=== PATIENT | female | born 1950 | race Caucasian/White ===

== ENCOUNTER → 2024-03-21 | Outpatient (CLI) | payer MEDICARE, MEDICAID, SELFPAY ==
--- NOTE | 2024-03-21 10:00 | XR_ITS ---
Examination: Screening digital mammography, bilateral Computer aided detection 3-D breast Tomosynthesis, bilateral Date and time of exam: March 21, 2024 0927 hrs. No prior films available for comparison Indication: Screening Technique: Nonmagnified MLO, CC views of the breasts to been obtained, reconstructed from 3-D Tomosynthesis images. R2 computer aided detection program utilized for evaluation of suspicious masses and/or abnormal calcifications. 3-D Tomosynthesis images obtained. Findings: Scattered areas of fibroglandular density Benign calcifications No interval suspicious masses Impression: BI-RADS category II: Benign Findings. Recommend 1 year follow-up mammogram.
== END | disposition home or self-care (01) ==
PROVIDERS: PCP Family Medicine; Referring Provider Family Medicine; Visit Provider Family Medicine
DX: Z12.31 Encounter for screening mammogram for malignant neoplasm of breast (principal); R92.323 Mammographic fibroglandular density, bilateral breasts; R92.1 Mammographic calcification found on diagnostic imaging of breast
CPT/HCPCS: 77063; 77067

== ENCOUNTER → 2024-08-08 | Outpatient (CLI) | payer MEDICARE, MEDICAID, SELFPAY ==
--- NOTE | 2024-08-08 09:28 | XR_ITS ---
Examination: Right femur 2 views TECHNIQUE: AP lateral right femur 2 views Date and time: August 08, 2024 0956 hours INDICATIONS: Right leg pain beginning 8 days ago after falling FINDINGS: No right hip fracture or dislocation Suspicious for nondisplaced fractures right superior inferior pubic rami Shaft of the femur intact IMPRESSION: Recommend CT scan of the pelvis follow-up to exclude fractures right superior inferior pubic rami
== END | disposition home or self-care (01) ==
LOC: COPL 08:55 → CDIM 08-18 08:40
PROVIDERS: PCP Internal Medicine; Referring Provider Internal Medicine; Visit Provider Internal Medicine
DX: S79.921A Unspecified injury of right thigh, initial encounter (principal); W19.XXXA Unspecified fall, initial encounter
CPT/HCPCS: 73552

== ENCOUNTER → 2024-08-15 | Outpatient (CLI) | payer MEDICARE, MEDICAID, SELFPAY ==
--- NOTE | 2024-08-15 09:45 | XR_ITS ---
Examination: CT pelvis without intravenous contrast. 2-D sagittal and coronal reconstructions. Date and time of exam:August 15, 2024 0952 hours Patient fell 2 weeks ago with injury to the pelvis, pelvic pain CTDI: vol (mGy) :8 DLP: (mGycm) : 240 Technique: Multiple 3 mm axial sections of the pelvis have been obtained with the 64 slice high resolution scanner. 2-D sagittal and coronal reconstructions. Low dose protocols were performed. One or more of the following dose reduction techniques were used; automated exposure control, adjustment of the mA and/or KV according to patient size, use of iterative reconstruction technique. Findings: No pelvic hematoma Urinary bladder intact Severe osteopenia Sacral segments and iliac wings intact Subacute fractures anterior inferior right pubic ramus, axial image 134 and fracture with offset, comminuted right superior pubic ramus axial image 115 Hips are intact IMPRESSION: Subacute fractures right superior inferior pubic rami
== END | disposition home or self-care (01) ==
PROVIDERS: PCP Internal Medicine; Referring Provider Internal Medicine; Visit Provider Internal Medicine
DX: S32.511A Fracture of superior rim of right pubis, initial encounter for closed fracture (principal); W19.XXXA Unspecified fall, initial encounter
CPT/HCPCS: 72192

== ENCOUNTER 2024-08-22 08:19 | Outpatient (AMB) | payer MEDICARE, MEDICAID, SELFPAY ==
--- NOTE | 2024-08-22 08:29 | ORTHONT_ITS ---
Vital signs 08/22/24 08:39 Height 1.57 m Height Method Measured Weight 66.82 kg Weight Measurement Method Standing Scale BMI 26.9 BP 98/62 Blood Pressure Source Automatic Cuff Blood Pressure Location Right Upper Arm Position Sitting Respiration 18 Pulse Source Monitor Temp 97.2 F Temp Source Temporal Artery Scan Pulse Oximetry (%) 96 Oxygen Delivery Method Room Air Med/Allergies Allergies & Medications Allergies NKA* Allergy (Uncoded 08/22/24 08:40) Medication Reconciliation Acetaminophen * (TYLENOL *) 1 tab PO TID PRN PAIN #0 tabs 01/04/16 [History Confirmed 08/22/24] Benztropine Mesylate * (COGENTIN *) 2 mg PO BID #0 tabs 01/04/16 [History Confirmed 08/22/24] Ezetimibe/Simvastatin (Vytorin 10-20 Mg Tablet) PO HS ##0 01/04/16 [History Confirmed 08/22/24] Magnesium Oxide (Magnesium) 400 mg PO #0 tabs 01/04/16 [History Confirmed 08/22/24] carisoprodol 350 mg tablet 350 mg PO HS PRN MUSCLE SPASMS #0 tabs 01/04/16 [History Confirmed 08/22/24] cholecalciferol (vitamin D3) 25 mcg (1,000 unit) capsule (Vitamin D3) 1,000 unit PO QDAY #0 tabs 01/04/16 [History Confirmed 08/22/24] docusate sodium 50 mg capsule (Colace Clear) PO BID #0 caps 01/04/16 [History Confirmed 08/22/24] montelukast 10 mg tablet (Singulair) 10 mg PO HS #0 tabs 01/04/16 [History Confirmed 08/22/24] pantoprazole 40 mg tablet,delayed release (Protonix) 40 mg PO QDAY ##0 01/04/16 [History Confirmed 08/22/24] pramipexole 0.5 mg tablet (Mirapex) 0.5 mg PO QDAY #0 tabs 01/04/16 [History Confirmed 08/22/24] risperidone 4 mg tablet (Risperdal) 4 mg PO QDAY #0 tabs 01/04/16 [History Confirmed 08/22/24] tramadol 50 mg tablet (Ultram) 50 mg PO Q8HR PRN PAIN #2 tabs 01/04/16 [History Confirmed 08/22/24] Exam Exam Patient is in no acute distress and is cooperative with the examination today. Breathing is nonlabored. In no respiratory distress. Patient has no paraspinal tenderness. Spinal deformity cannot be appreciated. The gait of the patient is nonantalgic Bilateral extremities were evaluated and demonstrates sensation intact to light touch. Palpable pedal pulses are present. No significant edema is present. Bilateral knees were examined and the patient has full strength and range of motion.. The left hip was examined. Patient was able to flex to 90 degrees, adduct to 30 degrees, abduct to 40 degrees, internally rotate to 20 degrees, and externally rotate to 20 degrees. Patient has a negative logroll. Stinchfield is negative. The patient is nontender diffusely to touch. The right hip was examined. Patient was able to flex to 90 degrees, adduct to 30 degrees, abduct to 40 degrees, internally rotate to 20 degrees, and externally rotate to 20 degrees. Patient has a negative logroll. The stinchfield is negative. She is tender to palpation over the greater trochanter Patient is a CT which demonstrates superior pubic ramus fractures on the right. She has no hip or pelvis x-rays Assessment and Plan Problem List (1) Acute pain of right hip: Status: Acute Plan: Patient is a pleasant 73-year-old female with a right pubic ramus fracture after a fall. We recommend conservative treatment of this time. Will order x-rays as she has no hip or pelvis x-rays. We will see her back to discuss different treatment options Advanced Care Planning Discussion Advance care planning discussed with:: patient Office Procedures GNS Level of Care Nursing/Assessment Patient Status: Initial/New Patient Nursing Assessment/Reassesment: Medication Reconciliation, Update PMH in EMR and Vital Signs Coordination of Care: Complex Care and Chronic Disease 1-5, Education Complex Pt/Fam, Consent,records obtained, informed consent, Lab and Imaging orders, Results/Orders obtained and Staff clarify orders New Patient Charge New Patient Point Assignment: [id number] New Patient Point Charge: IT ADMINISTRATOR Level 3 ([id number]) MA Intake Visit Data Collection New Patient or Established: New Patient (never been to [facility]) Reason for Visit:: FX OF SUPERIOR RIM RIGHT PUBIS Seen by Clinical Staff ONLY (RN/MA): No Medical Oncology Physician Required: No PCP or OBGYN visit in last 3 months: Yes Hx Now: No Do You Feel Safe at Home: Yes Authorities Contacted: N/A Questionairres Past Medical History Past Medical History Have you ever been diagnosed with any of the following: Neurological Problems Cerebrovascular Accident (CVA): No Transient Ischemic Attacks (TIA): No Dementia: No Alzheimer's Disease: No Parkinson's Disease: No Brain Tumor: No Meningitis: No Seizures: No Epilepsy: No Multiple Sclerosis: No Cerebral Palsy: No Amyotrophic Lateral Sclerosis (ALS/Lotus Gehrig's): No Guillain-[place] Syndrome: No Spina Bifida: No Paralysis: No Peripheral Neuropathy: No Good's Palsy: No Subdural Hematoma: No Migraine: No Head Trauma: No Spinal Cord Injury: No Traumatic Brain Injury: No Cardiology Problems Myocardial Infarction: No Cardiac Arrhythmia: No Atrial Fibrillation: No Angina: No Heart Murmur: No Coronary Artery Disease: No Atherosclerotic Heart Disease: No Peripheral Vascular Disease: No Hypercholesterolemia: No Aneurysm: No Congestive Heart Failure: No Congenital Heart Disease: No Valvular Heart Disease: No Rheumatic Fever: No Cardiomyopathy: No Edema: No Pericarditis: No Cellulitis: No Deep Vein Thrombosis: No Hypertension: No Hypotension: No Varicose Veins: No Respiratory Problems Chronic Obstructive Pulmonary Disease (COPD): No Asthma: No Bronchitis: No Emphysema: No Pneumonia: No Pulmonary Fibrosis: No Tuberculosis: No Pulmonary Embolism: No Pulmonary Edema: No Sleep Apnea: No CPAP Dependent: No Respiratory Aspiration: No Dyspnea: No Orthopnea: No Hx Cough: No Cough: No Wheezing: No Chest Deformities: No Smoking: No Smoking Cessation Counseling: No Smoking Exposure: No Tobacco Use: No Clubbing: No Exposure to Respiratory Irritants: No Intubation: No Stomache/Intestinal Problems Liver Cancer: No Hepatitis: No Cirrhosis: No Pancreatic Cancer: No Pancreatitis: No Celiac Disease: No Gall Bladder Disease: No Gastrointestinal Bleed: No Esophageal Varices: No Jackson's Esophagus: No Colitis: No Ulcerative Colitis: No Diverticulitis: No Diverticulosis: No Ulcer: No Colorectal Cancer: No Irritable Bowel: No Crohn's Disease: No Obstructive Bowel: No Hiatal Hernia: No Hemorrhoids: No Gastroesophageal Reflux Disease: No Polyps: No Obesity: No Genital/Urinary Problems Chronic Kidney Disease: No Renal Disease: No Kidney Stones: No Polycystic Kidney Disease: No Neurogenic Bladder: No Inguinal Hernia: No Dialysis: No Reproductive Problems Breast Cancer: No Endometriosis: No Fibroids: No Genital Herpes: No Gonorrhea: No Pelvic Inflammatory Disease: No Polycystic Ovarian Syndrome: No Previous Pregnancies: No Syphilis: No Uterine Prolapse: No Musculoskeletal Problems Muscular Dystrophy: No Myasthenia Gravis: No Marfan's Syndrome: No Bone Cancer: No Arthritis: No Rheumatoid Arthritis: No Osteoporosis: No Degenerative Disk Disease: No Gout: No Scoliosis: No Carpal Tunnel Syndrome: No Fibromyalgia: No Fractures: No Degenerative Joint Disease: No Osteomyelitis: No Poliovirus: No Head,Eye,Nose,Throat Problems Cataracts: No Glaucoma: No Blind: No Retinal Detachment: No Macular Degeneration: No Chronic Ear Infections: No Deafness: No Eye Prosthesis: No Endocrine Problems Diabetes Mellitus Type 1: No Diabetes Mellitus Type 2: No Hypoglycemia: No Elkins's Syndrome: No Phoenix's Disease: No Hyperthyroidism: No Hypothyroidism: No Thyroid Cancer: No Parathyroid Disease: No Pituitary Disease: No Systemic Lupus Erythematosus: No Syndrome of Inappropriate Antidiuretic Hormone: No Adrenal Disease: No Graves' Disease: No Blood Problems Anemia: No Leukemia: No Hemophilia: No Thalassemia: No Sickle Cell Disease: No Clotting Problems: No Psychologic Problems Schizophrenia: No Recreational Drug Use: No Bipolar Disorder: No Depression: No Anxiety: No Behavior Problems: No Self-Mutilation: No Attention Deficit Disorder: No Attention Deficit Hyperactivity Disorder: No Depression: No Post Traumatic Stress Disorder: No Eating Disorder: No Other Problems Hospitalization: No Autoimmune Disease: No Down Syndrome: No Autism: No Developmental Delay: No Cosmetic Surgery: No Shingles: No Falls: No Blood Transfusions: No Blood Transfusion Reaction: No Anesthesia Reactions: No Organ Transplant: No Chemotherapy: No Radiation Therapy: No Hyperbaric Therapy: No MRSA: No VRSA: No Vancomycin-Resistant Enterococci: No Human Immunodeficiency Virus (HIV): No Chicken Pox: No Measles: No Mumps: No Rubella ([place] Measles): No Pertussis: No Klebsiella Pneumoniae Carbapenemase Producing Bacteria: No Clostridium Difficile: No Hepatitis A: No Hepatitis B: No Hepatitis C: No Communicable Disease: No Cancer: No Cervical Cancer: No Lung Cancer: No Ovarian Cancer: No Surgical History Angioplasty: No Appendectomy: No Bariatric Surgery: No Breast Surgery: No Cancer Surgery: No Carotid Endarterectomy: No Cholecystectomy: No Colectomy: No Colostomy: No Coronary Artery Bypass Graft: No Valve Replacement: No Herniorrhaphy: No Total Hip Replacement: No Total Knee Replacement: No Hysterectomy: No Pacemaker: No Sinus Surgery: No Splenectomy: No TAHBSO-Total Abdominal Hysterectomy: No Thyroidectomy: No Ureter Stent: No Subjective Visit Visit for: new patient and hip Immunization / Flu Flu Vaccine in the Last 12 Months: No Flu Vaccine Exclusion Criteria: No Exclusion Criteria History of Present Illness Chief complaint: FX OF SUPERIOR RIM RIGHT PUBIS Patient is 73-year-old female with a fall approximately a month ago into her house when she fell to put on pants. She reports significant right hip pain since then. She was diagnosed with a right superior pubic ramus fracture. She reports that she is still walking over a mile a day. There is some discomfort Personal History Occupation: RETIRED Red flag PMH: smoker BMI Counceling provided: No Pain Pain level (0-10): 8 Pain location: groin Pain quality: sharp Pain timing: increases with activity Associated signs & symptoms: none Ambulatory data Ambulatory device: walker Treatments Improvement with previous injections: No Improvement with PT: No Improvement with NSAIDS: no Review of Systems Review of Systems: All systems negative unless otherwise noted in HPI.
[2024-08-22 08:39] VITALS: BP 98/62; RESP 18; TEMP 36.2; O2SAT 96; BMI 26.9
--- NOTE | 2024-08-22 08:39 | XR_ITS ---
Examination:Right hip AP, lateral, AP pelvis 3 views Technique: Hip AP lateral, AP pelvis, 3 views Exam date and time:August 22, 2024 0857 hours INDICATIONS: Patient fell one month ago with injury to the right hip, right hip pain. FINDINGS: No right hip fracture or dislocation Fractures right superior inferior pubic rami subacute to old IMPRESSION: Fractures right superior inferior pubic rami with satisfactory alignment, subacute to old.
== END 2024-08-22 08:51 | disposition home or self-care (01) ==
LOC: HODSRG 08:19
PROVIDERS: PCP Internal Medicine; Referring Provider Internal Medicine; Supervising Provider Orthopaedic Surgery Adult Reconstructive Orthopaedic Surgery; Visit Provider Orthopaedic Surgery Adult Reconstructive Orthopaedic Surgery
DX: M25.551 Pain in right hip (principal); S32.591A Other specified fracture of right pubis, initial encounter for closed fracture; W19.XXXA Unspecified fall, initial encounter
CPT/HCPCS: 73502; 99203; G0463

== ENCOUNTER 2024-08-29 13:31 | Outpatient (AMB) | payer MEDICARE, MEDICAID, SELFPAY ==
--- NOTE | 2024-08-29 13:59 | ORTHONT_ITS ---
Vital signs 08/29/24 14:11 Height 1.57 m Height Method Measured Weight 65.998 kg Weight Measurement Method Standing Scale BMI 26.7 BP 128/74 Blood Pressure Source Automatic Cuff Blood Pressure Location Left Upper Arm Position Sitting Respiration 18 Pulse 76 Pulse Source Monitor Temp 98.1 F Temp Source Temporal Artery Scan Pulse Oximetry (%) 96 Oxygen Delivery Method Room Air Med/Allergies Allergies & Medications Allergies NKA* Allergy (Uncoded 08/29/24 14:11) Medication Reconciliation Acetaminophen * (TYLENOL *) 1 tab PO TID PRN PAIN #0 tabs 01/04/16 [History Confirmed 08/29/24] Benztropine Mesylate * (COGENTIN *) 2 mg PO BID #0 tabs 01/04/16 [History Confirmed 08/29/24] Ezetimibe/Simvastatin (Vytorin 10-20 Mg Tablet) PO HS ##0 01/04/16 [History Confirmed 08/29/24] Magnesium Oxide (Magnesium) 400 mg PO #0 tabs 01/04/16 [History Confirmed 08/29/24] carisoprodol 350 mg tablet 350 mg PO HS PRN MUSCLE SPASMS #0 tabs 01/04/16 [History Confirmed 08/29/24] cholecalciferol (vitamin D3) 25 mcg (1,000 unit) capsule (Vitamin D3) 1,000 unit PO QDAY #0 tabs 01/04/16 [History Confirmed 08/29/24] docusate sodium 50 mg capsule (Colace Clear) PO BID #0 caps 01/04/16 [History Confirmed 08/29/24] montelukast 10 mg tablet (Singulair) 10 mg PO HS #0 tabs 01/04/16 [History Confirmed 08/29/24] pantoprazole 40 mg tablet,delayed release (Protonix) 40 mg PO QDAY ##0 01/04/16 [History Confirmed 08/29/24] pramipexole 0.5 mg tablet (Mirapex) 0.5 mg PO QDAY #0 tabs 01/04/16 [History Confirmed 08/29/24] risperidone 4 mg tablet (Risperdal) 4 mg PO QDAY #0 tabs 01/04/16 [History Confirmed 08/29/24] tramadol 50 mg tablet (Ultram) 50 mg PO Q8HR PRN PAIN #2 tabs 01/04/16 [History Confirmed 08/29/24] Exam Exam Patient is in no acute distress and is cooperative with the examination today. Breathing is nonlabored. In no respiratory distress. Patient has no paraspinal tenderness. Spinal deformity cannot be appreciated. The gait of the patient is nonantalgic Bilateral extremities were evaluated and demonstrates sensation intact to light touch. Palpable pedal pulses are present. No significant edema is present. Bilateral knees were examined and the patient has full strength and range of motion.. The left hip was examined. Patient was able to flex to 90 degrees, adduct to 30 degrees, abduct to 40 degrees, internally rotate to 20 degrees, and externally rotate to 20 degrees. Patient has a negative logroll. Stinchfield is negative. The patient is nontender diffusely to touch. The right hip was examined. Patient was able to flex to 90 degrees, adduct to 30 degrees, abduct to 40 degrees, internally rotate to 20 degrees, and externally rotate to 20 degrees. Patient has a negative logroll. The stinchfield is negative. She is tender to palpation over the greater trochanter Patient is a CT which demonstrates superior pubic ramus fractures on the right. She has no hip or pelvis x-rays X-rays demonstrate healed superior pubic rami fracture. She has minimal arthritis Assessment and Plan Problem List (1) Acute pain of right hip: Status: Acute Plan: Patient is a pleasant 73-year-old female with a right pubic ramus fracture after a fall. The right pubic ramus fracture is healed. She does have trochanteric bursitis. We thus recommended a trochanteric bursitis injection as well as anti-inflammatories. Recommend hip bursa cortisone injection as patient would like to proceed with conservative treatment at this time. The risks and benefits of the procedure were reviewed with the patient and patient gave verbal consent to continue with the procedure. Procedure: performed by Dr. Reyna Using sterile technique the right hip bursa was thoroughly prepped with alcohol prep, and approximately 1 cc of Depo-Medrol 80 mg/mL and 4 cc of 0.2% ropivacaine was injected without resistance. The patient tolerated the procedure well. Advanced Care Planning Discussion Advance care planning discussed with:: patient Office Procedures Medication Given Medication Given Medication Given: Yes Documented Dose Given: 1 Route: Infiitration Medication Given Medication Given Medication Given: Yes Documented Dose Given: 4 Route: Infiitration Office Meds methylprednisolone acetate 80 mg/mL suspension for injection Performing Provider: Ilia Reyna MD Performing Location: [facility] Administered by: Ilia Reyna MD on 08/29/24 14:07 Dose Route Admin Location Dispensed Lot Number Expiration Date [facility] [place] 2[place] [employer] 80 mg intra-articular HIP 1 mL [id number] 01/05/26 [address]-9 A [facility] ropivacaine (PF) 2 mg/mL (0.2 %) injection solution Performing Provider: Ilia Reyna MD Performing Location: [facility] Administered by: Ilia Reyna MD on 08/29/24 14:07 Dose Route Admin Location Dispensed Lot Number Expiration Date [facility] [place]NOTE 2[place] [employer] 20 mL Infiltration HIP 20 mL [id number] 01/05/26 06775-853-22 DELROY URBINA MA Intake Visit Data Collection New Patient or Established: Established Patient (seen at [facility] within 3 years) Reason for Visit:: F/U XRAY RESULTS HIP FX Seen by Clinical Staff ONLY (RN/MA): No Meatman Required: No PCP or OBGYN visit in last 3 months: Yes Hx Now: No Do You Feel Safe at Home: Yes Authorities Contacted: N/A Questionairres Past Medical History Past Medical History Have you ever been diagnosed with any of the following: Neurological Problems Cerebrovascular Accident (CVA): No Transient Ischemic Attacks (TIA): No Dementia: No Alzheimer's Disease: No Parkinson's Disease: No Brain Tumor: No Meningitis: No Seizures: No Epilepsy: No Multiple Sclerosis: No Cerebral Palsy: No Amyotrophic Lateral Sclerosis (ALS/Lotus Gehrig's): No Guillain-[place] Syndrome: No Spina Bifida: No Paralysis: No Peripheral Neuropathy: No Good's Palsy: No Subdural Hematoma: No Migraine: No Head Trauma: No Spinal Cord Injury: No Traumatic Brain Injury: No Cardiology Problems Myocardial Infarction: No Cardiac Arrhythmia: No Atrial Fibrillation: No Angina: No Heart Murmur: No Coronary Artery Disease: No Atherosclerotic Heart Disease: No Peripheral Vascular Disease: No Hypercholesterolemia: No Aneurysm: No Congestive Heart Failure: No Congenital Heart Disease: No Valvular Heart Disease: No Rheumatic Fever: No Cardiomyopathy: No Edema: No Pericarditis: No Cellulitis: No Deep Vein Thrombosis: No Hypertension: No Hypotension: No Varicose Veins: No Respiratory Problems Chronic Obstructive Pulmonary Disease (COPD): No Asthma: No Bronchitis: No Emphysema: No Pneumonia: No Pulmonary Fibrosis: No Tuberculosis: No Pulmonary Embolism: No Pulmonary Edema: No Sleep Apnea: No CPAP Dependent: No Respiratory Aspiration: No Dyspnea: No Orthopnea: No Hx Cough: No Cough: No Wheezing: No Chest Deformities: No Smoking: No Smoking Cessation Counseling: No Smoking Exposure: No Tobacco Use: No Clubbing: No Exposure to Respiratory Irritants: No Intubation: No Stomache/Intestinal Problems Liver Cancer: No Hepatitis: No Cirrhosis: No Pancreatic Cancer: No Pancreatitis: No Celiac Disease: No Gall Bladder Disease: No Gastrointestinal Bleed: No Esophageal Varices: No Jackson's Esophagus: No Colitis: No Ulcerative Colitis: No Diverticulitis: No Diverticulosis: No Ulcer: No Colorectal Cancer: No Irritable Bowel: No Crohn's Disease: No Obstructive Bowel: No Hiatal Hernia: No Hemorrhoids: No Gastroesophageal Reflux Disease: No Obesity: No Genital/Urinary Problems Renal Disease: No Kidney Stones: No Polycystic Kidney Disease: No Neurogenic Bladder: No Inguinal Hernia: No Dialysis: No Reproductive Problems Breast Cancer: No Endometriosis: No Fibroids: No Genital Herpes: No Gonorrhea: No Pelvic Inflammatory Disease: No Polycystic Ovarian Syndrome: No Previous Pregnancies: No Syphilis: No Uterine Prolapse: No Musculoskeletal Problems Muscular Dystrophy: No Myasthenia Gravis: No Marfan's Syndrome: No Bone Cancer: No Arthritis: No Rheumatoid Arthritis: No Osteoporosis: No Degenerative Disk Disease: No Gout: No Scoliosis: No Carpal Tunnel Syndrome: No Fibromyalgia: No Fractures: No Degenerative Joint Disease: No Osteomyelitis: No Poliovirus: No Head,Eye,Nose,Throat Problems Cataracts: No Glaucoma: No Blind: No Retinal Detachment: No Macular Degeneration: No Chronic Ear Infections: No Deafness: No Eye Prosthesis: No Endocrine Problems Diabetes Mellitus Type 1: No Diabetes Mellitus Type 2: No Hypoglycemia: No [place]'s Syndrome: No Markell's Disease: No Hyperthyroidism: No Hypothyroidism: No Thyroid Cancer: No Parathyroid Disease: No Pituitary Disease: No Systemic Lupus Erythematosus: No Syndrome of Inappropriate Antidiuretic Hormone: No Adrenal Disease: No Graves' Disease: No Blood Problems Anemia: No Leukemia: No Hemophilia: No Thalassemia: No Sickle Cell Disease: No Clotting Problems: No Psychologic Problems Schizophrenia: No Recreational Drug Use: No Bipolar Disorder: No Depression: No Anxiety: No Behavior Problems: No Self-Mutilation: No Attention Deficit Disorder: No Attention Deficit Hyperactivity Disorder: No Depression: No Post Traumatic Stress Disorder: No Eating Disorder: No Other Problems Hospitalization: No Down Syndrome: No Autism: No Developmental Delay: No Cosmetic Surgery: No Shingles: No Falls: No Blood Transfusions: No Blood Transfusion Reaction: No Anesthesia Reactions: No Organ Transplant: No Chemotherapy: No Radiation Therapy: No Hyperbaric Therapy: No MRSA: No VRSA: No Vancomycin-Resistant Enterococci: No Human Immunodeficiency Virus (HIV): No Chicken Pox: No Measles: No Mumps: No Rubella (Macedonian Measles): No Pertussis: No Klebsiella Pneumoniae Carbapenemase Producing Bacteria: No Clostridium Difficile: No Hepatitis A: No Hepatitis B: No Hepatitis C: No Communicable Disease: No Cancer: No Cervical Cancer: No Lung Cancer: No Ovarian Cancer: No Surgical History Angioplasty: No Appendectomy: No Bariatric Surgery: No Breast Surgery: No Cancer Surgery: No Carotid Endarterectomy: No Cholecystectomy: No Colectomy: No Colostomy: No Coronary Artery Bypass Graft: No Valve Replacement: No Herniorrhaphy: No Total Hip Replacement: No Total Knee Replacement: No Hysterectomy: No Pacemaker: No Sinus Surgery: No Splenectomy: No TAHBSO-Total Abdominal Hysterectomy: No Thyroidectomy: No Ureter Stent: No Subjective Visit Visit for: new patient and hip Immunization / Flu Flu Vaccine in the Last 12 Months: No Flu Vaccine Exclusion Criteria: No Exclusion Criteria History of Present Illness Chief complaint: FX OF SUPERIOR RIM RIGHT PUBIS Patient is 73-year-old female with a fall approximately a month ago into her house when she fell to put on pants. She reports significant right hip pain since then. She was diagnosed with a right superior pubic ramus fracture. She reports that she is still walking over a mile a day. There is some discomfort on the lateral aspect of her hip. Personal History Occupation: RETIRED Red flag PMH: smoker BMI Counceling provided: No Pain Pain level (0-10): 8 Pain location: groin Pain quality: sharp Pain timing: increases with activity Associated signs & symptoms: none Ambulatory data Ambulatory device: walker Treatments Improvement with previous injections: No Improvement with PT: No Improvement with NSAIDS: no Review of Systems Review of Systems: All systems negative unless otherwise noted in HPI.
[2024-08-29 14:11] VITALS: BP 128/74; PULSE 76; RESP 18; TEMP 36.7; O2SAT 96; BMI 26.7
== END 2024-08-29 14:12 | disposition home or self-care (01) ==
LOC: HODSRG 13:31
PROVIDERS: PCP Internal Medicine; Referring Provider Internal Medicine; Supervising Provider Orthopaedic Surgery Adult Reconstructive Orthopaedic Surgery; Visit Provider Orthopaedic Surgery Adult Reconstructive Orthopaedic Surgery
DX: M25.551 Pain in right hip (principal); S32.591D Other specified fracture of right pubis, subsequent encounter for fracture with routine healing; W19.XXXD Unspecified fall, subsequent encounter; Y92.009 Unspecified place in unspecified non-institutional (private) residence as the place of occurrence of the external cause; M70.60 Trochanteric bursitis, unspecified hip
CPT/HCPCS: 20610; 99204; J1010; J2795; G0463

== ENCOUNTER 2024-11-28 12:56 | Outpatient (AMB) | payer MEDICARE, MEDICAID, SELFPAY ==
--- NOTE | 2024-11-28 13:14 | ORTHONT_ITS ---
Vital signs 11/28/24 13:15 Height 1.57 m Height Method Stated Weight 68.237 kg Weight Measurement Method Standing Scale BMI 27.6 BP 121/84 Blood Pressure Source Automatic Cuff Blood Pressure Location Left Upper Arm Position Sitting Respiration 18 Pulse 78 Pulse Source Monitor Temp 98.2 F Temp Source Temporal Artery Scan Pulse Oximetry (%) 97 Oxygen Delivery Method Room Air Med/Allergies Allergies & Medications Allergies NKA* Allergy (Uncoded 11/28/24 13:16) Medication Reconciliation Acetaminophen * (TYLENOL *) 1 tab PO TID PRN PAIN #0 tabs 01/04/16 [History Confirmed 11/28/24] Benztropine Mesylate * (COGENTIN *) 2 mg PO BID #0 tabs 01/04/16 [History Confirmed 11/28/24] Ezetimibe/Simvastatin (Vytorin 10-20 Mg Tablet) PO HS ##0 01/04/16 [History Confirmed 11/28/24] Magnesium Oxide (Magnesium) 400 mg PO #0 tabs 01/04/16 [History Confirmed 11/28/24] carisoprodol 350 mg tablet 350 mg PO HS PRN MUSCLE SPASMS #0 tabs 01/04/16 [History Confirmed 11/28/24] cholecalciferol (vitamin D3) 25 mcg (1,000 unit) capsule (Vitamin D3) 1,000 unit PO QDAY #0 tabs 01/04/16 [History Confirmed 11/28/24] docusate sodium 50 mg capsule (Colace Clear) PO BID #0 caps 01/04/16 [History Confirmed 11/28/24] montelukast 10 mg tablet (Singulair) 10 mg PO HS #0 tabs 01/04/16 [History Confirmed 11/28/24] pantoprazole 40 mg tablet,delayed release (Protonix) 40 mg PO QDAY ##0 01/04/16 [History Confirmed 11/28/24] pramipexole 0.5 mg tablet (Mirapex) 0.5 mg PO QDAY #0 tabs 01/04/16 [History Confirmed 11/28/24] risperidone 4 mg tablet (Risperdal) 4 mg PO QDAY #0 tabs 01/04/16 [History Confirmed 11/28/24] tramadol 50 mg tablet (Ultram) 50 mg PO Q8HR PRN PAIN #2 tabs 01/04/16 [History Confirmed 11/28/24] naproxen 500 mg tablet 500 mg PO BID #30 tabs 11/28/24 [Rx] Exam Exam Patient is in no acute distress and is cooperative with the examination today. Breathing is nonlabored. In no respiratory distress. Patient has no paraspinal tenderness. Spinal deformity cannot be appreciated. The gait of the patient is nonantalgic Bilateral extremities were evaluated and demonstrates sensation intact to light touch. Palpable pedal pulses are present. No significant edema is present. Bilateral knees were examined and the patient has full strength and range of motion.. The left hip was examined. Patient was able to flex to 90 degrees, adduct to 30 degrees, abduct to 40 degrees, internally rotate to 20 degrees, and externally rotate to 20 degrees. Patient has a negative logroll. Stinchfield is negative. The patient is nontender diffusely to touch. The right hip was examined. Patient was able to flex to 90 degrees, adduct to 30 degrees, abduct to 40 degrees, internally rotate to 20 degrees, and externally rotate to 20 degrees. Patient has a negative logroll. The stinchfield is negative. She is tender to palpation over the greater trochanter Patient is a CT which demonstrates superior pubic ramus fractures on the right. She has no hip or pelvis x-rays X-rays demonstrate healed superior pubic rami fracture. She has minimal arthritis Assessment and Plan Problem List (1) Acute pain of right hip: Status: Acute Plan: Patient is a pleasant 73-year-old female with a right pubic ramus fracture after a fall. The right pubic ramus fracture is healed. She does have trochanteric bursitis of her bilateral hips. She would like to get bilateral hip bursa injections today as well as anti-inflammatories. Recommend hip bursa cortisone injection as patient would like to proceed with conservative treatment at this time. The risks and benefits of the procedure were reviewed with the patient and patient gave verbal consent to continue with the procedure. Procedure: performed by Dr. Reyna Using sterile technique the right hip bursa was thoroughly prepped with alcohol prep, and approximately 1 cc of Depo-Medrol 80 mg/mL and 4 cc of 0.2% ropivacaine was injected without resistance. The patient tolerated the procedure well. Recommend hip bursa cortisone injection as patient would like to proceed with conservative treatment at this time. The risks and benefits of the procedure were reviewed with the patient and patient gave verbal consent to continue with the procedure. Procedure: performed by Dr. Reyna Using sterile technique the left hip bursa was thoroughly prepped with alcohol prep, and approximately 1 cc of Depo-Medrol 80 mg/mL and 4 cc of 0.2% ropiv acaine was injected without resistance. The patient tolerated the procedure well. (2) Trochanteric bursitis of both hips: Status: Acute Advanced Care Planning Discussion Advance care planning discussed with:: patient Office Procedures GNS Level of Care Nursing/Assessment Patient Status: Established Patient Nursing Assessment/Reassesment: Medication Reconciliation, Update PMH in EMR and Vital Signs Coordination of Care: Complex Care and Chronic Disease 1-5, Education Complex Pt/Fam, Consent,records obtained, informed consent, Results/Orders obtained and Staff clarify orders Established Patient Charge Established Patient Point Assignment: 95 Established Patient Point Charge: EP Level 3 (80-115) Medication Given Medication Given Medication Given: Yes Documented Dose Given: 2 Route: Infiitration Medication Given Medication Given Medication Given: Yes Documented Dose Given: 8 Route: Infiitration Office Meds methylprednisolone acetate 80 mg/mL suspension for injection Performing Provider: Ilia Reyna MD Performing Location: [facility] Administered by: Ilia Reyna MD on 11/28/24 13:39 Dose Route Admin Location Dispensed Lot Number Expiration Date Pack age [employer] 160 mg intra-articular KNEE 2 mL [id number] 08/05/26 [address]-2 [id number] [employer] ropivacaine (PF) 2 mg/mL (0.2 %) injection solution Performing Provider: Ilia Reyna MD Performing Location: [facility] Administered by: Ilia Reyna MD on 11/28/24 13:39 Dose Route Admin Location Dispensed Lot Number Expiration Date Pack age [facility] [employer] 40 mL Infiltration KNEE 40 mL [id number] 03/07/27 70375-704-73 [id number] [facility] Intake Visit Data Collection New Patient or Established: Established Patient (seen at [facility] within 3 years) Reason for Visit:: 3MTH FOLLOW UP Seen by Clinical Staff ONLY (RN/MA): No Diamond Cleaver Required: No PCP or OBGYN visit in last 3 months: Yes Hx Now: No Do You Feel Safe at Home: Yes Authorities Contacted: N/A Questionairres Past Medical History Past Medical History Have you ever been diagnosed with any of the following: Neurological Problems Cerebrovascular Accident (CVA): No Transient Ischemic Attacks (TIA): No Dementia: No Alzheimer's Disease: No Parkinson's Disease: No Brain Tumor: No Meningitis: No Seizures: No Epilepsy: No Multiple Sclerosis: No Cerebral Palsy: No Amyotrophic Lateral Sclerosis (ALS/Lotus Gehrig's): No Guillain-[place] Syndrome: No Spina Bifida: No Paralysis: No Peripheral Neuropathy: No Good's Palsy: No Subdural Hematoma: No Migraine: No Head Trauma: No Spinal Cord Injury: No Traumatic Brain Injury: No Cardiology Problems Myocardial Infarction: No Cardiac Arrhythmia: No Atrial Fibrillation: No Angina: No Heart Murmur: No Coronary Artery Disease: No Atherosclerotic Heart Disease: No Peripheral Vascular Disease: No Hypercholesterolemia: No Aneurysm: No Congestive Heart Failure: No Congenital Heart Disease: No Valvular Heart Disease: No Rheumatic Fever: No Cardiomyopathy: No Edema: No Pericarditis: No Cellulitis: No Deep Vein Thrombosis: No Hypertension: No Hypotension: No Varicose Veins: No Respiratory Problems Chronic Obstructive Pulmonary Disease (COPD): No Asthma: No Bronchitis: No Emphysema: No Pneumonia: No Pulmonary Fibrosis: No Tuberculosis: No Pulmonary Embolism: No Pulmonary Edema: No Sleep Apnea: No CPAP Dependent: No Respiratory Aspiration: No Dyspnea: No Orthopnea: No Hx Cough: No Cough: No Wheezing: No Chest Deformities: No Smoking: No Smoking Cessation Counseling: No Smoking Exposure: No Tobacco Use: No Clubbing: No Exposure to Respiratory Irritants: No Intubation: No Stomache/Intestinal Problems Liver Cancer: No Hepatitis: No Cirrhosis: No Pancreatic Cancer: No Pancreatitis: No Celiac Disease: No Gall Bladder Disease: No Gastrointestinal Bleed: No Esophageal Varices: No Jackson's Esophagus: No Colitis: No Ulcerative Colitis: No Diverticulitis: No Diverticulosis: No Ulcer: No Colorectal Cancer: No Irritable Bowel: No Crohn's Disease: No Obstructive Bowel: No Hiatal Hernia: No Hemorrhoids: No Gastroesophageal Reflux Disease: No Obesity: No Genital/Urinary Problems Renal Disease: No Kidney Stones: No Polycystic Kidney Disease: No Neurogenic Bladder: No Inguinal Hernia: No Dialysis: No Reproductive Problems Breast Cancer: No Endometriosis: No Fibroids: No Genital Herpes: No Gonorrhea: No Pelvic Inflammatory Disease: No Polycystic Ovarian Syndrome: No Previous Pregnancies: No Syphilis: No Uterine Prolapse: No Musculoskeletal Problems Muscular Dystrophy: No Myasthenia Gravis: No Marfan's Syndrome: No Bone Cancer: No Arthritis: No Rheumatoid Arthritis: No Osteoporosis: No Degenerative Disk Disease: No Gout: No Scoliosis: No Carpal Tunnel Syndrome: No Fibromyalgia: No Fractures: No Degenerative Joint Disease: No Osteomyelitis: No Poliovirus: No Head,Eye,Nose,Throat Problems Cataracts: No Glaucoma: No Blind: No Retinal Detachment: No Macular Degeneration: No Chronic Ear Infections: No Deafness: No Eye Prosthesis: No Endocrine Problems Diabetes Mellitus Type 1: No Diabetes Mellitus Type 2: No Hypoglycemia: No Ina's Syndrome: No Yates's Disease: No Hyperthyroidism: No Hypothyroidism: No Thyroid Cancer: No Parathyroid Disease: No Pituitary Disease: No Systemic Lupus Erythematosus: No Syndrome of Inappropriate Antidiuretic Hormone: No Adrenal Disease: No Graves' Disease: No Blood Problems Anemia: No Leukemia: No Hemophilia: No Thalassemia: No Sickle Cell Disease: No Clotting Problems: No Psychologic Problems Schizophrenia: No Recreational Drug Use: No Bipolar Disorder: No Depression: No Anxiety: No Behavior Problems: No Self-Mutilation: No Attention Deficit Disorder: No Attention Deficit Hyperactivity Disorder: No Depression: No Post Traumatic Stress Disorder: No Eating Disorder: No Other Problems Hospitalization: No Down Syndrome: No Autism: No Developmental Delay: No Cosmetic Surgery: No Shingles: No Falls: No Blood Transfusions: No Blood Transfusion Reaction: No Anesthesia Reactions: No Organ Transplant: No Chemotherapy: No Radiation Therapy: No Hyperbaric Therapy: No MRSA: No VRSA: No Vancomycin-Resistant Enterococci: No Human Immunodeficiency Virus (HIV): No Chicken Pox: No Measles: No Mumps: No Rubella (Moroccan Measles): No Pertussis: No Klebsiella Pneumoniae Carbapenemase Producing Bacteria: No Clostridium Difficile: No Hepatitis A: No Hepatitis B: No Hepatitis C: No Communicable Disease: No Cancer: No Cervical Cancer: No Lung Cancer: No Ovarian Cancer: No Surgical History Angioplasty: No Appendectomy: No Bariatric Surgery: No Breast Surgery: No Cancer Surgery: No Carotid Endarterectomy: No Cholecystectomy: No Colectomy: No Colostomy: No Coronary Artery Bypass Graft: No Valve Replacement: No Herniorrhaphy: No Total Hip Replacement: No Total Knee Replacement: No Hysterectomy: No Pacemaker: No Sinus Surgery: No Splenectomy: No TAHBSO-Total Abdominal Hysterectomy: No Thyroidectomy: No Ureter Stent: No Subjective Visit Visit for: follow up visit Immunization / Flu Flu Vaccine in the Last 12 Months: No Flu Vaccine Exclusion Criteria: No Exclusion Criteria History of Present Illness Chief complaint: FX OF SUPERIOR RIM RIGHT PUBIS Patient is 73-year-old female with a fall approximately a month ago into her house when she fell to put on pants. She reports significant right hip pain since then. She was diagnosed with a right superior pubic ramus fracture. She reports that she is still walking over a mile a day. There is some discomfort on the lateral aspect of her hip. She did well with her right hip bursa injection she has persistent pain on the lateral aspect of her hip that has reoccurred. She would like to get both hips injected again for her trochanteric bursitis Personal History Occupation: RETIRED Red flag PMH: smoker BMI Counceling provided: No Pain Pain level (0-10): 8 Pain location: groin Pain quality: sharp Pain timing: increases with activity Associated signs & symptoms: none Ambulatory data Ambulatory device: walker Treatments Improvement with previous injections: No Improvement with PT: No Improvement with NSAIDS: no Review of Systems Review of Systems: All systems negative unless otherwise noted in HPI.
[2024-11-28 13:15] VITALS: BP 121/84; PULSE 78; RESP 18; TEMP 36.8; O2SAT 97; BMI 27.6
== END 2024-11-28 13:32 | disposition home or self-care (01) ==
LOC: HODSRG 12:56
PROVIDERS: PCP Internal Medicine; Referring Provider Internal Medicine; Supervising Provider Orthopaedic Surgery Adult Reconstructive Orthopaedic Surgery; Visit Provider Orthopaedic Surgery Adult Reconstructive Orthopaedic Surgery
DX: S32.511D Fracture of superior rim of right pubis, subsequent encounter for fracture with routine healing (principal); W19.XXXD Unspecified fall, subsequent encounter; M70.62 Trochanteric bursitis, left hip; M70.61 Trochanteric bursitis, right hip
CPT/HCPCS: 20610; 99213; J1010; J2795; G0463

== ENCOUNTER → 2024-12-05 | Outpatient (CLI) | payer MEDICARE, MEDICAID, SELFPAY ==
--- NOTE | 2024-12-05 | XR_ITS ---
Examination: Bone densitometry Date and time of exam: December 05, 2024, 1314 hours INDICATIONS: Menopause age 42, history of pelvic fracture postmenopausal calcium 6 years, personal history osteoporosis Technique: Lumbar spine and hip total bone mineralization values of an calculated. Peak reference and age match control results have been displayed. Findings: Lumbar spine total bone mineralization is 0.856 gm/cm2. This is 1.7 standard deviations below peak reference. This is 0.6 standard deviations above age-matched controls. Hip total bone mineralization is 0.752 gm/cm2 This is 1.6 standard deviations below peak reference. This is 0.2 standard deviations above age-matched controls Impression: There is osteopenia based on lumbar spine measurements. There is osteopenia based on hip measurements Lumbar mineralization is increased 1.3% compared with January 28, 2019 Hip mineralization is decreased 7.2% compared with January 28, 2019
--- NOTE | 2024-12-05 13:00 | XR_ITS ---
Examination: CT chest, low-dose lung cancer screening study without intravenous contrast. Sagittal and coronal 2-D reconstructions. Exam date and time: December 05, 2024, 1256 hours INDICATIONS: Screening study for malignant neoplasm of lung field coughing and smoking 30 years CTDI:vol (mGy) 10.5 DLP: (mGycm) 345 Technique: Multiple 3.0 mm axial sections of the chest to been obtained. Bone and lung density settings are obtained. Sagittal and coronal 2-D reconstructions have been obtained. Low dose protocols were performed. One or more of the following dose reduction techniques were used; automated exposure control, adjustment of the mA and/or KV according to patient size, use of iterative reconstruction technique. Findings: No thoracic aortic aneurysmal dilatation Pulmonary artery segments are not enlarged. Heavy calcification left anterior descending coronary artery. No paratracheal or tracheobronchial or bronchopulmonary adenopathy. No pneumonia or pulmonary edema pleural disease or pulmonary nodules No visualized liver or splenic lesion No gallstones Small fat-containing upper abdominal wall epigastric hernia No pancreatic mass Kidneys partially visualized no hydronephrosis Kyphosis dorsal spine with severe osteopenia IMPRESSION: No mediastinal lymphadenopathy No pneumonia, pulmonary edema, pleural disease or pulmonary nodules
== END | disposition home or self-care (01) ==
LOC: CDIM 11:50
PROVIDERS: Referring Provider Internal Medicine; Visit Provider Internal Medicine
DX: Z12.2 Encounter for screening for malignant neoplasm of respiratory organs (principal); M85.89 Other specified disorders of bone density and structure, multiple sites
CPT/HCPCS: 71250; 77080